=== PATIENT | female | born 1930 | race Caucasian/White ===

== ENCOUNTER 2016-10-12 09:38 | Inpatient (IN) | payer OTHER, MEDICARE ==
[~2016-10-12] VITALS: Ht 149.9 cm; Wt 60.8 kg
[2016-10-12] VITALS (20 sets, daily range): BP systolic 119–184; BP diastolic 49–104; PULSE 56–103; RESP 12–43; TEMP 98.8–101.5; O2SAT 93–100
--- NOTE | 2016-10-12 09:38 | NUR ---
BIB sq 64 from [facility] Logan, Placed in room 01. Placed on cardiac cath lab radiology technologist, blood pressure machine and pulse oximeter. To gown for exam. Side rails up.
--- NOTE | 2016-10-12 09:38 | NUR ---
Dr. Casper at bedside for evaluation
[2016-10-12] MEDS ORDERED: NACL 0.9% 1,000 ML IV SCH ×2 (09:40→13:15)
--- NOTE | 2016-10-12 09:40 | NUR ---
Pt sent by Radha for evaluation of ALOC . Pt difficult to arouse. H/O COPD,HTN,and GERD. IV established 20G LFA prior to arrival. Verbal order of NARCAN given by Dr. Casper.
--- NOTE | 2016-10-12 09:50 | NUR ---
Pt has mild response to narcan. Pt opens eyes to verbal stimuli.
[2016-10-12] MEDS ORDERED: methylPREDNISolone SOD SUCC/PF 62.5 MG/ML VIAL IVP ONE (10:00)
[2016-10-12] MEDS ORDERED: NS IV PRN ×2 (10:00→10:12)
[2016-10-12] MEDS ORDERED: ACETAMINOPHEN 650 MG SUPP.RECT RC ONE (10:00)
[2016-10-12] MEDS ORDERED: NALOXONE HCL IV PRN ×2 (10:00→10:12)
[2016-10-12 10:06] LABS: BASOPHILS # (AUTO) 0.1 K/uL (0.0-0.2); BASOPHILS % (AUTO) 0.7 % (0.0-2.0); EOSINOPHILS % (AUTO) 0.3 % (0.0-4.0); HEMATOCRIT 42.7 % (36-48); HEMOGLOBIN 13.4 g/dL (12.0-16.0); LYMPHOCYTES # (AUTO) 1.2 K/uL (1.0-5.5); LYMPHOCYTES % (AUTO) 13.1 % (20.5-51.5); MEAN CORPUSCULAR HEMOGLOBIN 28 pg (27-31); MEAN CORPUSCULAR HGB CONC 31 % (32-36); MEAN CORPUSCULAR VOLUME 88 fL (79.0-98.0); MONOCYTES # (AUTO) 0.3 K/uL (0.0-1.0); MONOCYTES % (AUTO) 3.3 % (1.7-9.3); NEUTROPHILS # (AUTO) 7.8 K/uL (1.8-7.7); NEUTROPHILS % (AUTO) 82.6 % (40.0-70.0); PLATELET COUNT (AUTO) 291 K/uL (130-430); RED BLOOD CELL COUNT(AUTO) 4.86 MIL/uL (4.2-6.2); RED CELL DISTRIBUTION WIDTH 14.7 % (9.0-15.0); WHITE BLOOD COUNT (AUTO) 9.4 K/uL (4.8-10.8)
[2016-10-12 10:11] LABS: ANION GAP 3 (5-15); CALCIUM 9.3 mg/dL (8.4-11.0); CHLORIDE 101 mmol/L (98-107); CREATININE 1.79 mg/dL (0.55-1.30); GLUCOSE 147 mg/dL (70-99); POTASSIUM 5.3 mmol/L (3.5-5.1); SODIUM SERUM 136 mmol/L (136-145); UREA NITROGEN, BLOOD 29 mg/dL (8-21)
[2016-10-12 10:13] LABS: INR 1.1 (0.8-1.2); PROTHROMBIN TIME 12.2 SECS (9.5-12.5)
[2016-10-12 10:15] LABS: ALANINE AMINOTRANSFERASE 34 U/L (12-78); ALBUMIN 3.8 g/dL (3.4-4.8); ASPARTATE AMINOTRANSFERASE 44 U/L (10-37); TOTAL BILIRUBIN 0.3 mg/dL (0.0-1.0); TOTAL PROTEIN, SERUM 6.8 g/dL (6.4-8.3)
[2016-10-12] MEDS ORDERED: NACL 0.9% 1,000 ML IV ONE (10:15)
[2016-10-12] MEDS ORDERED: ETOMIDATE 20 MG/ 10 ML VIAL (AMIDATE) IVP ONE (10:15)
[2016-10-12] MEDS ORDERED: ROCURONIUM BROMIDE 10 MG/ML (ZEMURON) IV ONE (10:15)
--- NOTE | 2016-10-12 10:20 | NUR ---
ET Tube: 7.5 cm Depth: 22 cm at the lip Vent settings: Rate 24 Tidal volume 500 PEEP 5 FiO2 100% Pt tolerated well.
[2016-10-12] MEDS ORDERED: AMIT100T2 PO (10:26)
[2016-10-12] MEDS ORDERED: GABA-531 PO (10:26)
[2016-10-12] MEDS ORDERED: CHOL500013 PO (10:26)
[2016-10-12] MEDS ORDERED: ACET-2165 PO (10:26)
[2016-10-12] MEDS ORDERED: HYDR-3111 PO (10:26)
[2016-10-12] MEDS ORDERED: LEVO88TA5 PO (10:26)
[2016-10-12] MEDS ORDERED: NOR10 PO (10:26)
[2016-10-12] MEDS ORDERED: OMEP20CA10 PO (10:26)
[2016-10-12] MEDS ORDERED: MAGN400O4 PO (10:26)
[2016-10-12] MEDS ORDERED: ONDA4TAB5 PO (10:26)
[2016-10-12] MEDS ORDERED: SERT-131 PO (10:26)
[2016-10-12] MEDS ORDERED: METO25TA6 PO (10:26)
[2016-10-12] MEDS ORDERED: DULR10 RC (10:26)
[2016-10-12] MEDS ORDERED: IPRA4AER INH (10:26)
[2016-10-12] MEDS ORDERED: LOPE1LIQ PO (10:26)
--- NOTE | 2016-10-12 10:26 | NUR ---
Medication reconciliation completed with information provided by Jose Luis Logan. Any prior medication reconciliation on file was reviewed and corrected.
[2016-10-12] MEDS ORDERED: NALOXONE HCL 0.4 MG/ML AMP (NARCAN) IVP ONE (10:30)
[2016-10-12] MEDS ORDERED: PIPERACILLIN/TAZO 3.375 GM in NS 50 ML IV ONE (10:30)
[2016-10-12] MEDS ORDERED: IPRATROPIUM/ALBUTEROL SULFATE 3 ML AMPUL.NEB INH SCH (10:45)
[2016-10-12] MEDS ORDERED: PROPOFOL DRIP 100 ML IV ONE (10:45)
[2016-10-12] MEDS ORDERED: PIPERACILLIN/TAZOBACTAM 3.375 GM/VIAL (ZOSYN) IV ONE (11:08)
[2016-10-12 11:19] LABS: BLOOD GAS PH 7.269 (7.350-7.450)
[2016-10-12 11:20] LABS: ABG TOTAL HEMOGLOBIN 13.8 G/dL (12.0-18.0); BLOOD GAS BASE EXCESS 5.1 mmol/L (-3.0-3.0); BLOOD GAS COHb% 1.1 % (0.5-1.5); BLOOD GAS HHB 7.4 % (0.0-6.0); BLOOD O2Hb% 91.1 % (94.0-97.0)
--- NOTE | 2016-10-12 11:20 | NUR ---
PULLED ETT 2CM DOWN PER ORDER FROM 23CMM TO 21CM LL. CORKY KAISER HEARD. SAT 100% PT GETTING VOLUMES. Addendum: 10/12/16 at 1636 by Hazel Mendiola RT Amended: Links added.
[2016-10-12 11:22] LABS: ABG TOTAL HEMOGLOBIN 13.3 G/dL (12.0-18.0); BLOOD GAS BASE EXCESS 0.8 mmol/L (-3.0-3.0); BLOOD GAS COHb% 0.7 % (0.5-1.5); BLOOD GAS PH 7.545 (7.350-7.450); BLOOD O2Hb% 97.9 % (94.0-97.0)
--- NOTE | 2016-10-12 11:30 | NUR ---
PER FAMILY AT BEDSIDE, PT IS DNR. MONISHA CALLED TO FAX AND FAMILY TO FAX DNR.
--- NOTE | 2016-10-12 11:35 | NUR ---
Per family request after discussion w/Dr. Casper.Pt to extubated after pt regains consciousness.
--- NOTE | 2016-10-12 11:50 | NUR ---
RN NOTES: ADMISSION FROM ER ADMITTED FROM ER FOR ALTERED MENTAL STATUS/ ASP. PNA, PATIENT CAME IN VIA GURNEY, ORALLY INTUBATED TO VENT. ADMISSION CARE DONE, ET TUBE TO VENT ON AC-12, VT-500, FIO2- 50%, PEEP - 5 SCOPE SHOWS SINUS RHYTHM, INITIAL VITAL SIGNS CHECKED AND RECORDED. SPECIMEN FOR SPUTUM C&S AND MRSA SCREEN OBTAINED AND SENT TO LAB. NORMAL SALINE BOLUS INFUSING ON THE LEFT FOREARM IV LOCK.
--- NOTE | 2016-10-12 12:05 | NUR ---
FAMILY VISIT: DAUGHTER AT BEDSIDE
--- NOTE | 2016-10-12 12:14 | NUR ---
PULMONARY CONSULT: DR ACOSTA Consult was called, sw: Reva re: resp pneumonia, intubated
--- NOTE | 2016-10-12 12:15 | NUR ---
MD VISIT: DR. CONKLIN PATIENT SEEN AND EXAMINED BY DR. CONKLIN, SPOKE TO FAMILY RE: PLAN OF CARE
--- NOTE | 2016-10-12 12:30 | NUR ---
RN NOTES: CODE STATUS UPDATE FAMILY CAME IN WITH PATIENT'S POLST (DNR), DR. CONKLIN SPOKE TO FAMILY ABOUT CODE STATUS. PER FAMILY'S REQUEST, PT WILL BE EXTUBATED WHEN SHE'S MORE AWAKE AND RESPONSIVE.
[2016-10-12] MEDS ORDERED: MILK OF MAGNESIA 30 ML UDC PO PRN (13:00)
[2016-10-12] MEDS ORDERED: ONDANSETRON 4 MG ODT TAB PO PRN (13:00)
[2016-10-12] MEDS ORDERED: SODIUM POLYSTYRENE SULFONATE 15 GM/60 ML UDBTL PO ONE (13:00)
[2016-10-12] MEDS ORDERED: BISACODYL 10 MG/SUPPOSITORY RC PRN (13:00)
--- NOTE | 2016-10-12 13:25 | NUR ---
DR. ACOSTA HERE FOR CONSULT.
[2016-10-12] MEDS ORDERED: ROCURONIUM BROMIDE 10 MG/ML (ZEMURON) ONE (14:00)
[2016-10-12] MEDS ORDERED: ETOMIDATE 20 MG/ 10 ML VIAL (AMIDATE) ONE (14:00)
--- NOTE | 2016-10-12 14:35 | NUR ---
TO RADIOLOGY FOR CT OF THE HEAD.
--- NOTE | 2016-10-12 14:40 | NUR ---
PAGED DR RUBIN CORONA
--- NOTE | 2016-10-12 14:58 | NUR ---
2ND PAGE FOR DR CONKLIN
[2016-10-12] MEDS ORDERED: IPRATROPIUM BROM 0.5 MG/2.5 ML VIAL.NEB (ATROVENT) INH SCH (15:00)
[2016-10-12] MEDS ORDERED: hydrALAZINE HCL 20 MG/ML VIAL IVP PRN (15:15)
[2016-10-12] MEDS: IPRATROPIUM/ALBUTEROL SULFATE 3 ML AMPUL.NEB INH SCH ×3 (15:28→23:11)
--- NOTE | 2016-10-12 16:15 | NUR ---
RN NOTES SPOKE TO DR. CONKLIN, MADE AWARE OF PT CRITICAL TROPONIN LEVEL, WITH ORDERS.
[2016-10-12] MEDS: PIPERACILLIN/TAZO 3.375/DEX-IS 50 ML IV SCH ×2 (16:51→22:01)
--- NOTE | 2016-10-12 17:45 | NUR ---
ECHOCARDIOGRAM DONE. EF - 73%
--- NOTE | 2016-10-12 18:00 | NUR ---
RN NOTES TEMP - 101. COOLING MEASURES DONE.
--- NOTE | 2016-10-12 18:10 | NUR ---
RN NOTES NO URINE FROM METCALF CATH. PATIENT BED WETTING. METCALF CATHETER REINSERTED. URINE SPECIMEN OBTAINED AND SENT TO LAB. PM CARE DONE, CHG BATH AND PERICARE DONE, PATIENT MADE COMFORTABLE.
--- NOTE | 2016-10-12 18:20 | NUR ---
RN NOTES PATIENT IS MORE AWAKE AND RESPONSIVE, ATTEMPTING TO PULL THE ET TUBE. PATIENT IS DNR, DAUGHTER AT BEDSIDE, PATIENT EXTUBATED PER FAMILY AND PT REQUEST. PT PLACED ON O2 @ 2L/MIN VIA NC. HEAD OF BED UP FOR COMFORT.
--- NOTE | 2016-10-12 18:25 | NUR ---
RN NOTES: EXTUBATED, O2 AT 2L/MIN VIA NC
[2016-10-12 18:41] LABS: BILIRUBIN,URINE NEGATIVE (NEGATIVE); BLOOD, URINE 1+ (NEGATIVE); CLARITY/URINE HAZY (CLEAR); COLOR,URINE YELLOW (YELLOW); GLUCOSE,URINE NEGATIVE (NEGATIVE); KETONES,URINE NEGATIVE (NEGATIVE); LEUKOCYTE ESTERASE ,URINE 3+ (NEGATIVE); NITRITE, URINE NEGATIVE (NEGATIVE); PH,URINE 6.5 (5.0-8.0); PROTEIN URINE NEGATIVE (NEGATIVE); UROBILINOGEN,URINE 0.2 (0.2-1.0)
--- NOTE | 2016-10-12 18:45 | NUR ---
RN NOTES COOLING MEASURES CONTINOUSLY DONE, PATIENT MADE COMFORTABLE.
[2016-10-12 18:52] LABS: BACTERIA,URINE MODERATE /HPF (None Seen); WBC,URINE >100 /HPF (0-3)
[2016-10-12] MEDS: ACETAMINOPHEN 325 MG TABLET PO PRN (19:28)
--- NOTE | 2016-10-12 19:45 | NUR ---
PM ASSESSMENT PT IN BED TALKING TO HER DAUGHTER, ALERT, CALM AND COOPERATIVE. PT ON O2 2L NC. O2 SAT 97%. SINUS TACHYCARDIA ON CONTRACTOR BUYER. PERIPHERAL IV 20G TO LEFT FOREARM DRESSING CLEAN DRY INTACT. NO SIGNS OF INFECTION OR INFILTRATION. NACL INFUSING @ 50 CC/HR. METCALF CATHETER IN PLACE DRAINING YELLOW URINE. PT'S DAUGHTER AT BEDSIDE. CALL LIGHT WITHIN REACH. BED AT LOWEST POSITION. CONTINUE TO MONITOR.
--- NOTE | 2016-10-12 19:50 | NUR ---
PAIN MEDICATION PT C/O CHRONIC PAIN 02/20. CALLED DR CONKLIN TO UPDATE MD ABOUT PT'S STATUS. NEW ORDERS RECEIVED.
[2016-10-12] MEDS: NACL 0.9% 1,000 ML IV SCH (20:00)
--- NOTE | 2016-10-12 20:05 | NUR ---
CARDIAC CONSULT CALLED DR MILLER FOR CONSULT TWICE. DR SKAGGS RAW SAMPLER FOR DR MILLER. NO CALL BACK RECEIVED.
[2016-10-12] MEDS: GABAPENTIN 300 MG CAPSULE PO SCH (20:27)
[2016-10-12] MEDS: AMITRIPTYLINE HCL 25 MG TABLET (ELAVIL) PO SCH (20:27)
[2016-10-12] MEDS: METOPROLOL TARTRATE 25 MG TABLET PO SCH (20:27)
[2016-10-12] MEDS: MORPHINE 2 MG/ML INJ. SYRINGE IVP PRN (20:29)
[2016-10-13] VITALS (22 sets, daily range): BP systolic 12–180; BP diastolic 50–100; PULSE 69–88; RESP 12–24; TEMP 98.4–98.8; O2SAT 93–98
[2016-10-13] MEDS: IPRATROPIUM/ALBUTEROL SULFATE 3 ML AMPUL.NEB INH SCH ×6 (03:55→23:14)
[2016-10-13] MEDS: NACL 0.9% 1,000 ML IV SCH (05:44)
[2016-10-13] MEDS: MORPHINE 2 MG/ML INJ. SYRINGE IVP PRN (05:44)
[2016-10-13] MEDS: PIPERACILLIN/TAZO 3.375/DEX-IS 50 ML IV SCH ×2 (05:44→13:28)
[2016-10-13] MEDS: LEVOTHYROXINE SODIUM 0.088 MG TABLET PO SCH (06:49)
[2016-10-13 06:52] LABS: BASOPHILS % (AUTO) 0.4 % (0.0-2.0); EOSINOPHILS # (AUTO) 0.2 K/uL (0.0-0.4); EOSINOPHILS % (AUTO) 2.1 % (0.0-4.0); HEMATOCRIT 36.7 % (36-48); HEMOGLOBIN 12.1 g/dL (12.0-16.0); LYMPHOCYTES # (AUTO) 1.3 K/uL (1.0-5.5); LYMPHOCYTES % (AUTO) 18.5 % (20.5-51.5); MEAN CORPUSCULAR HEMOGLOBIN 29 pg (27-31); MEAN CORPUSCULAR HGB CONC 33 % (32-36); MEAN CORPUSCULAR VOLUME 88 fL (79.0-98.0); MONOCYTES # (AUTO) 0.4 K/uL (0.0-1.0); MONOCYTES % (AUTO) 5.9 % (1.7-9.3); NEUTROPHILS # (AUTO) 5.4 K/uL (1.8-7.7); NEUTROPHILS % (AUTO) 73.1 % (40.0-70.0); PLATELET COUNT (AUTO) 188 K/uL (130-430); RED BLOOD CELL COUNT(AUTO) 4.17 MIL/uL (4.2-6.2); RED CELL DISTRIBUTION WIDTH 14.5 % (9.0-15.0); WHITE BLOOD COUNT (AUTO) 7.3 K/uL (4.8-10.8)
[2016-10-13 06:56] LABS: CALCIUM 8.2 mg/dL (8.4-11.0); CHLORIDE 107 mmol/L (98-107); CREATININE 0.94 mg/dL (0.55-1.30); GLUCOSE 100 mg/dL (70-99); POTASSIUM 3.4 mmol/L (3.5-5.1); SODIUM SERUM 140 mmol/L (136-145); UREA NITROGEN, BLOOD 16 mg/dL (8-21)
[2016-10-13 07:07] LABS: ANION GAP < 3 (5-15)
--- NOTE | 2016-10-13 08:00 | NUR ---
AWAKE AND ALERT, NOT IN ACUTE DISTRESS, DENIES ANY PAIN/DISCOMFORT. SCOPE SHOWS SINUS RHYTHM. BP STABLE. PATIENT ASSISTED WITH BREAKFAST, ATE FAIRLY.
[2016-10-13] MEDS: SERTRALINE HCL 50 MG TABLET PO SCH (09:00)
[2016-10-13] MEDS: OMEPRAZOLE 20 MG CAPSULE.DR (PriLOSEC) PO SCH (09:27)
[2016-10-13] MEDS: amLODIPine BESYLATE 10 MG TABLET PO SCH (09:27)
[2016-10-13] MEDS: METOPROLOL TARTRATE 25 MG TABLET PO SCH ×2 (09:30→20:44)
--- NOTE | 2016-10-13 10:00 | NUR ---
FAMILY HERE TO VISIT, UPDATED ON PT PRESENT CONDITION.
--- NOTE | 2016-10-13 11:30 | NUR ---
DR. MILLER HERE FOR CONSULT.
[2016-10-13] MEDS ORDERED: ASPIRIN 81 MG TAB.CHEW PO ONE (12:15)
--- NOTE | 2016-10-13 13:00 | NUR ---
DR. CONKLIN HERE TO SEE PATIENT.
--- NOTE | 2016-10-13 13:30 | NUR ---
DR. ACOSTA HERE TO SEE PATIENT, WITH ORDERS.
[2016-10-13] MEDS: ACETAMINOPHEN 325 MG TABLET PO PRN ×2 (14:58→18:43)
--- NOTE | 2016-10-13 15:15 | NUR ---
DOZING ON AND OFF.
--- NOTE | 2016-10-13 16:00 | NUR ---
CONFUSED AND DISORIENTED AT THIS TIME. PATIENT REORIENTED, STILL WANTS TO GO HOME. REQUESTED TO CALL HER DAUGHTER SO SHE CAN GO HOME. DAUGHTER CALLED, WILL COME IN AND SEE PATIENT.
--- NOTE | 2016-10-13 17:00 | NUR ---
DAUGHTER AT BEDSIDE, PATIENT IS CALM AT THIS TIME. DAUGHTER INFORMED ABOUT ORDER TO TRANSFER PATIENT TO TELEMETRY.
--- NOTE | 2016-10-13 17:40 | NUR ---
TRANSFERRED TO TELEMETRY RM 132-C IN STABLE CONDITION. ENDORSED TO PATRICIA CHAIREZ
--- NOTE | 2016-10-13 17:45 | NUR ---
ADMISSION NOTE Received patient from ICU via gurney, received report from RN. Patient admitted with diagnosis of Altered Mental Status/Pneumonia Aspiration. Patient oriented to hospital routine, call light, toileting and safety-patient verbalized understanding.
--- NOTE | 2016-10-13 18:59 | NUR ---
closing notes: pt on bed resting. no distress noted. daughter at bedside. needs attended. call light within reach. report will be given to incoming nurse.
--- NOTE | 2016-10-13 19:15 | NUR ---
change of shift.initial pt.assessment.dtr@bedside.pt.presents mild degree aloc.aaa/q x1 2 person;soley. iv access;lock.rt,forearm.o2 applied:2l/min via nasal cannulae.herbert catheter.call light w/in pt's reach. pt.a transfer from the unit:icu:10/13/16.
--- NOTE | 2016-10-13 20:00 | NUR ---
pt.assessed.v/s assessed.values w/in normal limits:ex:b/p elevated.2 f/u.o2sat%=96%@2l/min via nc. pt.repsoiitoned.i have supplied h2o;pitcher,kleenx,trash bags,cups.call light w/in pt's reach. Addendum: 10/14/16 at 0815 by Abel Cummings RN pt.requested bedpan.i have attended to the pt's request;unassisted.i have cleaned the pt;unassisted. pt.presents bowel movement.
[2016-10-13] MEDS: AMITRIPTYLINE HCL 25 MG TABLET (ELAVIL) PO SCH (20:43)
[2016-10-13] MEDS: GABAPENTIN 300 MG CAPSULE PO SCH (20:45)
--- NOTE | 2016-10-13 21:00 | NUR ---
2100p medications administered.medications objective explanation conveyed 2 the pt.pt.able 2 swallow efficently: whole pills.call light w/in pt's reach.
--- NOTE | 2016-10-13 22:00 | NUR ---
pt.assessed.pt.presence quiescent affect;calm,asleep.pt.repositioned.sheet applied upon pt. call light w/in pt's reach.
--- NOTE | 2016-10-14 | NUR ---
PT.PRESENTS RESTLESS/AGITATED STATUS.attempts 2 calm pt.2 no avail:unsuccssful.2 f/u w/ .pt.repositioned.environment/stimuli lessened.pt.re oriented.
--- NOTE | 2016-10-14 00:20 | NUR ---
paged paged for Leeanna Brown; s/w Taylor, dialed .
[2016-10-14] MEDS ORDERED: LORazepam 1 MG TABLET PO ONE (00:30)
--- NOTE | 2016-10-14 00:30 | NUR ---
returned telephone call.apprised of pt'c status. ordered ativan:1mg po x1.
--- NOTE | 2016-10-14 00:45 | NUR ---
pt.assessed.i have held the ativan.pt.presents quiescent affect;calm.pt.repositoned.blanket/sheet applied. call light placed w/in pt's reach.
--- NOTE | 2016-10-14 01:00 | NUR ---
pt.assessed.pt.presents quiescent affect;calm,asleep.o2 placed via nasal cannulae.hold the ativan.
--- NOTE | 2016-10-14 02:00 | NUR ---
pt.repositioned.pt.presents quiescent affect;calm,asleep.call light w/in pt's reach.
[2016-10-14] MEDS: IPRATROPIUM/ALBUTEROL SULFATE 3 ML AMPUL.NEB INH SCH ×5 (03:00→23:29)
--- NOTE | 2016-10-14 04:00 | NUR ---
pt.assessed.pt.repositioned.v/s assessed.values w/in normal limits.no distress/discomfort manifested. call light w/in pt's reach.
[2016-10-14 04:15] VITALS: BP 156/73; PULSE 74; RESP 20; TEMP 98.2; O2SAT 90
--- NOTE | 2016-10-14 06:00 | NUR ---
pt.assessed.pt.presents quiescent affect;calm,asleep.no distress/discomfort manifested. call light w/in pt's reach.
--- NOTE | 2016-10-14 06:45 | NUR ---
0700a medication administered.pt.able 2 swallow efficently.pt.repositioned.top sheet placed upon pt. call light w/in pt's reach.
[2016-10-14] MEDS: LEVOTHYROXINE SODIUM 0.088 MG TABLET PO SCH (06:59)
[2016-10-14 07:18] LABS: BASOPHILS % (AUTO) 0.2 % (0.0-2.0); EOSINOPHILS # (AUTO) 0.3 K/uL (0.0-0.4); EOSINOPHILS % (AUTO) 2.9 % (0.0-4.0); HEMATOCRIT 40.2 % (36-48); LYMPHOCYTES # (AUTO) 1.2 K/uL (1.0-5.5); LYMPHOCYTES % (AUTO) 13.5 % (20.5-51.5); MEAN CORPUSCULAR HEMOGLOBIN 29 pg (27-31); MEAN CORPUSCULAR HGB CONC 33 % (32-36); MEAN CORPUSCULAR VOLUME 88 fL (79.0-98.0); MONOCYTES # (AUTO) 0.5 K/uL (0.0-1.0); MONOCYTES % (AUTO) 5.5 % (1.7-9.3); NEUTROPHILS # (AUTO) 6.7 K/uL (1.8-7.7); NEUTROPHILS % (AUTO) 77.9 % (40.0-70.0); PLATELET COUNT (AUTO) 183 K/uL (130-430); RED BLOOD CELL COUNT(AUTO) 4.57 MIL/uL (4.2-6.2); RED CELL DISTRIBUTION WIDTH 14.1 % (9.0-15.0); WHITE BLOOD COUNT (AUTO) 8.7 K/uL (4.8-10.8)
--- NOTE | 2016-10-14 07:20 | NUR ---
intial notes: pt on bed resting. awake and alert. stable. i.v. access patent. discussed plan of care. call light within reach. report received at bedside.
[2016-10-14 08:00] VITALS: BP 178/86; PULSE 87; RESP 14; TEMP 98.2; O2SAT 96
[2016-10-14 08:09] LABS: ANION GAP 8 (5-15); CALCIUM 8.3 mg/dL (8.4-11.0); CHLORIDE 105 mmol/L (98-107); CREATININE 0.59 mg/dL (0.55-1.30); GLUCOSE 100 mg/dL (70-99); SODIUM SERUM 147 mmol/L (136-145); UREA NITROGEN, BLOOD 6 mg/dL (8-21)
[2016-10-14] MEDS: SERTRALINE HCL 50 MG TABLET PO SCH (08:10)
[2016-10-14] MEDS: METOPROLOL TARTRATE 25 MG TABLET PO SCH ×2 (08:10→20:29)
[2016-10-14] MEDS: amLODIPine BESYLATE 10 MG TABLET PO SCH (08:11)
[2016-10-14] MEDS: ASPIRIN 81 MG TAB.CHEW PO SCH (08:11)
[2016-10-14] MEDS: OMEPRAZOLE 20 MG CAPSULE.DR (PriLOSEC) PO SCH (08:11)
--- NOTE | 2016-10-14 08:19 | NUR ---
rounds: pt confused asking for her clothes. re-orient. no distress noted.
[2016-10-14] MEDS: ACETAMINOPHEN 325 MG TABLET PO PRN ×2 (08:23→21:49)
[2016-10-14 08:32] LABS: POTASSIUM 2.7 mmol/L (3.5-5.1)
[2016-10-14 08:41] LABS: ALANINE AMINOTRANSFERASE 42 U/L (12-78); ALBUMIN 3.2 g/dL (3.4-4.8); ASPARTATE AMINOTRANSFERASE 41 U/L (10-37); TOTAL BILIRUBIN 0.5 mg/dL (0.0-1.0)
[2016-10-14] MEDS ORDERED: POTASSIUM CHLORIDE 40 MEQ, LIDOCAINE JECT 2% PF 100 MG 75 MG in NS 250 ML IV ONE (09:00)
--- NOTE | 2016-10-14 09:17 | NUR ---
Nutrition Update Horacio Scale 12 noted. Pt admitted for acute respiratory failure/aspiration pneumonia. Diet: regular BMI: 23.2 kg/m2 RD to follow per nutrition care standards.
--- NOTE | 2016-10-14 10:00 | NUR ---
P.T.: seen by Romi
[2016-10-14 10:10] LABS: CHOLESTEROL 150 mg/dL (<200); HDL CHOLESTEROL 50 mg/dL (>55); LDL CHOLESTEROL 78 mg/dL (<100); TRIGLYCERIDES 112 mg/dL (30-150)
[2016-10-14] MEDS ORDERED: POTASSIUM CHLORIDE 20 MEQ TAB.PRT.SR PO ONE (10:15)
[2016-10-14] MEDS ORDERED: hydrALAZINE HCL 25 MG TABLET PO ONE (10:15)
[2016-10-14] MEDS: HYDROcodone/ACETAMIN 5-325 MG TAB (NORCO/ VICODIN) PO PRN (10:30)
--- NOTE | 2016-10-14 11:00 | NUR ---
Luis rounds: seen by Dr. Carr , talk to pt and daughter.
--- NOTE | 2016-10-14 11:40 | NUR ---
HORACIO SCALE EVALUATION: Patient evaluated for a low Horacio score of 12. Patient was awake, alert, confused, and received in a Te bed with an IsoFlex ISAIAS mattress, low air-loss therapy was initiated. Patient is unable to turn independently. Skin is fair. Recommend encourage and assist patient as needed with repositioning every 2 hours with pillow support, and off-load pressure areas with pillows for pressure re-distribution. Elevate, off-load and float bilateral heels with pillows. Use moisture barrier cream on buttocks and other moisture susceptible areas QID and as needed for soiling. Perform skin care and monitor skin integrity Q shift. Maintain patient on a low air-loss mattress.
[2016-10-14 12:00] VITALS: BP 124/42; PULSE 70; RESP 18; TEMP 97.4; O2SAT 93
--- NOTE | 2016-10-14 14:00 | NUR ---
rounds: pt sleeping. no distress noted.
[2016-10-14 14:50] VITALS: Ht 149.9 cm; Wt 60.8 kg
[2016-10-14 16:00] VITALS: BP 156/95; PULSE 82; RESP 18; TEMP 97.7; O2SAT 98
--- NOTE | 2016-10-14 16:00 | NUR ---
rounds: pt sleeping.
[2016-10-14] MEDS: PIPERACILLIN/TAZO 4.5GM/DEX-IS 100 ML IV SCH ×2 (16:13→21:44)
--- NOTE | 2016-10-14 18:30 | NUR ---
rounds: daughter at bedside. pt stable.
[2016-10-14 20:00] VITALS: BP 147/60; PULSE 89; RESP 18; TEMP 98.5; O2SAT 94
--- NOTE | 2016-10-14 20:00 | NUR ---
PM Shift Assessment Received patient lying in bed, AAO x2, no acute distress noted. Patient was reoriented x4, but remains confused. IV noted to right forearm, noted to be infiltrated, IV discontinued. New IV to be inserted. Chase catheter noted, secured in place, draining well to gravity. Incentive spirometer noted at the bedside, patient able to demonstrate correct use up to 500mL of inspired air. Education provided on the importance of use 10x/hour while awake. SCD's noted to BLE. Plan of care discussed with patient and updated on board. Call light is within reach, all fall and safety precautions in place, will continue to monitor closely.
[2016-10-14] MEDS: GABAPENTIN 300 MG CAPSULE PO SCH (20:28)
[2016-10-14] MEDS: AMITRIPTYLINE HCL 25 MG TABLET (ELAVIL) PO SCH (20:28)
[2016-10-14] MEDS: POTASSIUM CHLORIDE 20 MEQ TAB.PRT.SR PO SCH (20:28)
--- NOTE | 2016-10-14 20:49 | NUR ---
closing notes: pt on bed awake. needs attended. call light within reach. report given at bedside.
[2016-10-14] MEDS: hydrALAZINE HCL 25 MG TABLET PO SCH (21:45)
--- NOTE | 2016-10-14 22:22 | NUR ---
RN Rounds Patient is resting quietly in bed, no acute distress noted. IV noted to be infiltrated, new IV started earlier to left hand, #22 gauge, good blood return noted, flushes well. IV antibiotics started and infusing well. Call light is within reach, all fall and safety precautions in place, will continue to monitor.
[2016-10-15] VITALS (7 sets, daily range): BP systolic 143–163; BP diastolic 60–78; PULSE 72–97; RESP 16–20; TEMP 97–98.3; O2SAT 91–100
--- NOTE | 2016-10-15 00:20 | NUR ---
RN Rounds Patient is sleeping but easily arousable, no acute distress noted. Patient made comfortable in bed with pillow support. Call light is within reach, all fall and safety precautions in place, will continue to monitor.
--- NOTE | 2016-10-15 02:34 | NUR ---
RN Rounds Patient is resting quietly in bed, no acute distress noted. Call light is within reach, all fall and safety precautions in place, will continue to monitor.
[2016-10-15] MEDS: IPRATROPIUM/ALBUTEROL SULFATE 3 ML AMPUL.NEB INH SCH ×6 (03:00→23:36)
--- NOTE | 2016-10-15 04:27 | NUR ---
RN Rounds Patient is resting quietly in bed, no acute distress noted, appears confused, reoriented x4 and she verbalized understanding. Patient was cleaned and repositioned with pillow support, made comfortable in bed. Call light is within reach, all fall and safety precautions in place, will continue to monitor.
[2016-10-15] MEDS: PIPERACILLIN/TAZO 4.5GM/DEX-IS 100 ML IV SCH (06:10)
[2016-10-15] MEDS: LEVOTHYROXINE SODIUM 0.088 MG TABLET PO SCH (06:10)
--- NOTE | 2016-10-15 06:32 | NUR ---
Closing Notes Patient is resting quietly in bed, noted with confusion, reoriented x4 and made comfortable in bed. IV antibiotics infusing well, no complain of pain at this time. Call light is within reach, all fall and safety precautions in place, will continue to monitor until SBAR report is endorsed to AM nurse at bedside. Addendum: 10/15/16 at 0638 by Cande Fitzpatrick RN Patient is stable, all needs met throughout shift.
[2016-10-15 06:42] LABS: ALANINE AMINOTRANSFERASE 48 U/L (12-78); ANION GAP 2 (5-15); ASPARTATE AMINOTRANSFERASE 36 U/L (10-37); CALCIUM 8.4 mg/dL (8.4-11.0); CHLORIDE 104 mmol/L (98-107); CREATININE 0.65 mg/dL (0.55-1.30); GLUCOSE 103 mg/dL (70-99); POTASSIUM 3.4 mmol/L (3.5-5.1); SODIUM SERUM 142 mmol/L (136-145); TOTAL BILIRUBIN 0.5 mg/dL (0.0-1.0); TOTAL PROTEIN, SERUM 5.9 g/dL (6.4-8.3); UREA NITROGEN, BLOOD 5 mg/dL (8-21)
[2016-10-15 07:02] LABS: BASOPHILS % (AUTO) 0.2 % (0.0-2.0); EOSINOPHILS # (AUTO) 0.4 K/uL (0.0-0.4); HEMATOCRIT 39.1 % (36-48); HEMOGLOBIN 12.8 g/dL (12.0-16.0); LYMPHOCYTES # (AUTO) 1.1 K/uL (1.0-5.5); MEAN CORPUSCULAR HEMOGLOBIN 29 pg (27-31); MEAN CORPUSCULAR HGB CONC 33 % (32-36); MEAN CORPUSCULAR VOLUME 88 fL (79.0-98.0); MONOCYTES # (AUTO) 0.6 K/uL (0.0-1.0); MONOCYTES % (AUTO) 7.1 % (1.7-9.3); NEUTROPHILS # (AUTO) 6.7 K/uL (1.8-7.7); NEUTROPHILS % (AUTO) 75.7 % (40.0-70.0); PLATELET COUNT (AUTO) 195 K/uL (130-430); RED BLOOD CELL COUNT(AUTO) 4.43 MIL/uL (4.2-6.2); RED CELL DISTRIBUTION WIDTH 14.2 % (9.0-15.0); WHITE BLOOD COUNT (AUTO) 8.8 K/uL (4.8-10.8)
--- NOTE | 2016-10-15 08:00 | NUR ---
Opening Note: Received report from night nurse. Patient is resting comfortably in bed. No s/s of distress or sob. Patient is awake with some confusion. Vital signs wnl, assessment complete. Call light in reach, bed in lowest position, and will continue to monitor.
[2016-10-15] MEDS: SERTRALINE HCL 50 MG TABLET PO SCH (08:44)
[2016-10-15] MEDS: ASPIRIN 81 MG TAB.CHEW PO SCH (08:44)
[2016-10-15] MEDS: POTASSIUM CHLORIDE 20 MEQ TAB.PRT.SR PO SCH ×2 (08:44→20:57)
[2016-10-15] MEDS: OMEPRAZOLE 20 MG CAPSULE.DR (PriLOSEC) PO SCH (08:44)
[2016-10-15] MEDS: hydrALAZINE HCL 25 MG TABLET PO SCH ×2 (08:45→20:58)
[2016-10-15] MEDS: amLODIPine BESYLATE 10 MG TABLET PO SCH (08:45)
[2016-10-15] MEDS: METOPROLOL TARTRATE 25 MG TABLET PO SCH ×2 (08:46→20:57)
--- NOTE | 2016-10-15 10:00 | NUR ---
NOTE: PATIENT IS RESTING COMFORTABLY IN BED. NO S/S OF DISTRESS OR SOB. PATIENT IS ALERT BUT CONFUSED. CALL LIGHT IN REACH, BED IN LOWEST POSITION, AND WILL CONTINUE TO MONITOR.
--- NOTE | 2016-10-15 12:00 | NUR ---
NOTE: PATIENT IS RESTING COMFORTABLY IN BED. NO S/S OF DISTRESS OR SOB. PATIENT IS ALERT BUT CONFUSED. DAUGHTER AT BEDSIDE. CALL LIGHT IN REACH, BED IN LOWEST POSITION, AND WILL CONTINUE TO MONITOR.
--- NOTE | 2016-10-15 14:47 | NUR ---
PHYSICAL THERAPY CO-SIGN The Physical Therapy Progress Notes documented by Convict Guard have been reviewed. CONT PT PER PLAN OF CARE; FOCUS ON TRANSFER TRAINING Reviewed/Co-Signed by: Christine Rivera PT Documentation Done by: YO MENDES STAMPING PRESS OPERATOR Addendum: 10/15/16 at 1448 by Christine Rivera PT Amended: Links added.
[2016-10-15] MEDS: cefTRIAXone 1 GM in D5W 50 ML IV SCH (14:51)
--- NOTE | 2016-10-15 15:48 | NUR ---
DC PLANNING Spoke w pt @ bedside, states lives @ [facility] side. States Dr Carr discussed dc planning w her & her dtr & plan for snf possibly tomorrow. Agreeable w plan for SNF, prefers [facility].
--- NOTE | 2016-10-15 16:00 | NUR ---
Note: Patient is resting comfortably in bed. No s/s of distress or sob. Patient is alert and oriented. Call light in reach, bed in lowest position, and will continue to monitor.
[2016-10-15] MEDS: HYDROcodone/ACETAMIN 5-325 MG TAB (NORCO/ VICODIN) PO PRN ×2 (17:06→21:06)
--- NOTE | 2016-10-15 18:11 | NUR ---
CLOSING NOTE: PATIENT IS RESTING COMFORTABLY IN BED. NO S/S OF DISTRESS OR SOB. PATIENT IS ALERT AND ORIENTED. IV IS PATENT. METCALF DRAINING TO GRAVITY. CALL LIGHT IN REACH, BED IN LOWEST POSITION, AND WILL GIVE REPORT TO NIGHT NURSE.
--- NOTE | 2016-10-15 19:21 | NUR ---
OPENING NOTES RECEIVED REPORT FROM DAY SHIFT NURSE. PATIENT SHOWS NO SIGNS OR SYMPTOMS OF ACUTE DISTRESS. NASAL CANNULA AT 2L, PATIENT IS ALERT AND ORIENTED. BED IN LOWEST POSITION, BED ALARM ON, CALL LIGHT WITHIN REACH. DAUGHTER AT BEDSIDE.
[2016-10-15] MEDS: GABAPENTIN 300 MG CAPSULE PO SCH (20:57)
[2016-10-15] MEDS: AMITRIPTYLINE HCL 25 MG TABLET (ELAVIL) PO SCH (20:58)
--- NOTE | 2016-10-15 21:04 | NUR ---
ROUNDS PATIENT COMPLAINS OF PAIN 12/21. PROVIDED PAIN MEDICATION ORDERED. NO ACUTE SIGNS OR SYMPTOMS OF DISTRESS NOTED. FALL PRECAUTIONS IN PLACE, CALL LIGHT WITHIN REACH. WILL CONTINUE TO MONITOR FREQUENTLY. ROOM ACROSS FROM NURSES STATION.
--- NOTE | 2016-10-15 22:45 | NUR ---
ROUNDS PATIENT IN GOOD SPIRITS. AWAKE AND SITTING UP IN BED. ASSISTED PATIENT TO EAT HER BROWNIE AND DRINK WATER. NO SIGNS OR SYMPTOMS OF ACUTE DISTRESS NOTED. BED IN LOWEST POSITION, BED ALARM ON, CALL LIGHT WITHIN REACH. WILL CONTINUE TO MONITOR FREQUENTLY.
[2016-10-16 00:50] VITALS: BP 132/67; PULSE 68; RESP 18; TEMP 98.4; O2SAT 96
--- NOTE | 2016-10-16 01:05 | NUR ---
ROUNDS PATIENT SLEEPING COMFORTABLY IN SEMI-LEVINE'S POSITION. NO S/S OF ACUTE DISTRESS NOTED. PATIENT IS SNORING, VISIBLE RISE AND FALL OF CHEST. NASAL CANNULA IN PLACE WITH 2L RUNNING. BED IN LOWEST POSITION, BED ALARM ON, CALL LIGHT WITHIN REACH. WILL CONTINUE TO MONITOR.
[2016-10-16] MEDS: IPRATROPIUM/ALBUTEROL SULFATE 3 ML AMPUL.NEB INH SCH ×4 (03:00→15:34)
--- NOTE | 2016-10-16 03:00 | NUR ---
ROUNDS PATIENT IS SLEEPING COMFORTABLY. VISIBLE RISE AND FALL OF CHEST NOTED. NO SIGNS OR SYMPTOMS OF DISTRESS NOTED. BED IN LOWEST POSITION, BED ALARM ON, CALL LIGHT WITHIN REACH. WILL CONTINUE TO MONITOR FREQUENTLY.
[2016-10-16 03:51] VITALS: BP 131/58; PULSE 71; RESP 18; TEMP 98.6; O2SAT 97
[2016-10-16 04:00] VITALS: BP 131/58; PULSE 71; RESP 18; TEMP 98.6; O2SAT 97
--- NOTE | 2016-10-16 04:00 | NUR ---
ROUNDS PATIENT SLEEPING COMFORTABLY. VISIBLE RISE AND FALL OF CHEST NOTED. AUDIBLY SNORING IN SEMI-LEVINE'S POSITION. FALL PRECAUTIONS IN PLACE. NO ACUTE S/S OF DISTRESS NOTED. WILL CONTINUE TO MONITOR. CALL LIGHT WITHIN REACH.
[2016-10-16] MEDS: LEVOTHYROXINE SODIUM 0.088 MG TABLET PO SCH (06:26)
--- NOTE | 2016-10-16 06:46 | NUR ---
CLOSING NOTES PATIENT SITTING IN BED SLEEPING COMFORTABLY. VISIBLE RISE AND FALL OF CHEST NOTED, AUDIBLE SNORING. IV PATENT AND RUNNING. NO ACUTE S/S OF DISTRESS NOTED. BED IN LOWEST POSITION, CALL LIGHT WITHIN REACH. ALL NEEDS MET THROUGHOUT THE SHIFT. WILL ENDORSE CARE TO DAY SHIFT NURSE.
--- NOTE | 2016-10-16 07:20 | NUR ---
initial notes: patient awake,alert and confused. i.V. access patent. herbert cath draining well. SCD in placed. call light within reach. report received at bedside.
[2016-10-16] MEDS: OMEPRAZOLE 20 MG CAPSULE.DR (PriLOSEC) PO SCH (08:15)
[2016-10-16] MEDS: ASPIRIN 81 MG TAB.CHEW PO SCH (08:15)
[2016-10-16] MEDS: HYDROcodone/ACETAMIN 5-325 MG TAB (NORCO/ VICODIN) PO PRN ×2 (08:17→18:01)
[2016-10-16] MEDS: POTASSIUM CHLORIDE 20 MEQ TAB.PRT.SR PO SCH ×2 (08:18→21:48)
[2016-10-16] MEDS: amLODIPine BESYLATE 10 MG TABLET PO SCH (08:18)
[2016-10-16] MEDS: hydrALAZINE HCL 25 MG TABLET PO SCH ×2 (08:19→21:48)
[2016-10-16] MEDS: SERTRALINE HCL 50 MG TABLET PO SCH (08:19)
[2016-10-16] MEDS: METOPROLOL TARTRATE 25 MG TABLET PO SCH ×2 (08:19→21:49)
--- NOTE | 2016-10-16 08:25 | NUR ---
rounds: patient assisted with feeding by student nurse. compliant. complained of pain 8/;10. Pain meds given thru P.O.
--- NOTE | 2016-10-16 10:36 | NUR ---
DISCHARGE PLANNING Faxed referral to [facility] [phone]. Will follow up. Addendum: 10/16/16 at 1221 by Meena Cardoso DP Spoke with Zita in admitting at [facility] patient assigned to room 113A PATRICIA to report [phone] bed available anytime. PATRICIA Keller made aware. Faxed updated ISO status to [facility]. Will follow up on ISO bed. RN will follow up on MD discharge order.
[2016-10-16 11:30] VITALS: BP 142/57; PULSE 71; RESP 16; TEMP 97.2; O2SAT 96
--- NOTE | 2016-10-16 12:45 | NUR ---
PHYSICAL THERAPY CO-SIGN The Physical Therapy Progress Notes documented by Materials Recycler have been reviewed. Reviewed/Co-Signed by: Marylu Batista, PT Documentation Done by: Saeid Dolan PTA I concur with the documentation of this INTERNATIONAL SALES MANAGER. Plan: continue PT as per plan of care. Addendum: 10/16/16 at 1403 by Marylu Batista PT Amended: Links added.
[2016-10-16] MEDS: cefTRIAXone 1 GM in D5W 50 ML IV SCH (12:46)
--- NOTE | 2016-10-16 15:00 | NUR ---
PICC line: 2 failed attempts for i.v. insertion. Dr. Carr aware and ordered PICC line before discharging the pt.
--- NOTE | 2016-10-16 15:00 | NUR ---
Chase cath: pt refused the removal of the catheter and daughter also insist not to remove today but can be removed when she leaves the hospital tomorrow.
[2016-10-16 15:43] VITALS: BP 113/52; PULSE 64; RESP 18; TEMP 98.2; O2SAT 93
[2016-10-16 15:59] LABS: INR 1.1 (0.8-1.2)
--- NOTE | 2016-10-16 16:30 | NUR ---
IV RE-INSERTION: Complaining of leakage to IV site. Restarted on . Successful after 2 attempts. L hand gauge 24. Resumed current IVF of Rocephine antibiotic and regulated @ 100 per hour. Will observe for any signs of infiltration.
--- NOTE | 2016-10-16 17:30 | NUR ---
rounds: pt eating dinner by herself. no distress noted.
--- NOTE | 2016-10-16 19:30 | NUR ---
closing notes: pt on bed resting. daughter at bedside. no distress noted. needs attended. call light within reach. report given at bedside.
[2016-10-16 19:40] VITALS: BP 112/64; PULSE 95; RESP 18; TEMP 98.1; O2SAT 96
--- NOTE | 2016-10-16 19:40 | NUR ---
Initial Notes Pt is alert, oriented x3, pleasant and cooperative. POC discussed with pt and daughter Carolin at bedside, both verbalized understanding. Will reinforce teaching as needed. IV intact. VSS. Afebrile. Pt is bedrest, with safety precautions in place, side rails up x3, with bed in lowest, locked position, bed alarm on at all times. IV to left hand #24g noted. Order for PICC line noted. Pt is on contact isolation for MDRO of urine, isolation precaution maintained. Breathing is even and unlabored. Pt is on 2L N/C. Pt educated business system consultant light use, and correct back demonstration noted. All needs met at this time. Call light in hand. Will continue to monitor.
--- NOTE | 2016-10-16 20:07 | NUR ---
Hadley Carr at this time. Will await call back.
--- NOTE | 2016-10-16 20:21 | NUR ---
Spoke with MD Carr Informed MD Carr that PICC line nurse will be here tonight. ordered to hold discharge order for mikayla.
[2016-10-16] MEDS: GABAPENTIN 300 MG CAPSULE PO SCH (21:48)
[2016-10-16] MEDS: AMITRIPTYLINE HCL 25 MG TABLET (ELAVIL) PO SCH (21:49)
--- NOTE | 2016-10-16 21:55 | NUR ---
PICC line RN with patient at this time.
--- NOTE | 2016-10-16 22:30 | NUR ---
PICC line inserted to MARK double lumen. Ok to use per PICC line PATRICIA De La Garza.
[2016-10-17 00:45] VITALS: BP 136/63; PULSE 66; RESP 18; TEMP 97.4; O2SAT 98
--- NOTE | 2016-10-17 01:46 | NUR ---
ASSUMPTION OF CARE Pt. and report received from LVN. Lakeisha Will assume care for patient.
--- NOTE | 2016-10-17 04:05 | NUR ---
ROUNDS Pt. is resting quietly in bed with no s/s of acute distress. Currently receiving breathing tx. Safety and fall precautions in place. Bed alarm on. Room near nurses station. Will continue to monitor.
[2016-10-17 04:30] VITALS: BP 135/72; PULSE 89; RESP 18; TEMP 98.7; O2SAT 97
[2016-10-17] MEDS: LEVOTHYROXINE SODIUM 0.088 MG TABLET PO SCH (06:15)
[2016-10-17] MEDS: HYDROcodone/ACETAMIN 5-325 MG TAB (NORCO/ VICODIN) PO PRN ×2 (06:18→15:33)
--- NOTE | 2016-10-17 06:43 | NUR ---
DUE MEDS/PAIN/METCALF CATHETER/INCENTIVE SPIROMETER Due Synthroid administered as ordered. Administered with [place] 5-325mg 1 tab as ordered PRN for moderate pain. Educated pt. regarding medication and s/e. Pt. verbalized understanding. 200mls of yellow urine emptied from Metcalf catheter. Metcalf catheter removed, pt. tolerated well. Metcalf catheter tip intact. Pt. tolerated well. Encouraged pt. to continue deep breathing exercises with incentive spirometer. Requested for window to be closed. Safety precautions in place. Bed alarm on. room near nurses station. Will continue to monitor.
--- NOTE | 2016-10-17 06:56 | NUR ---
CLOSING NOTES All needs met. Pt. denies any needs at this time. States she wants to "try to rest for a little bit." No s/s of acute distress. Safety and fall precautions in place. Bed alarm on. Right upper PICC line is CDI. Educated pt. she will need to void within 6 hours since her herbert has been removed. Will endorse care to oncoming day shift nurse.
[2016-10-17] MEDS: IPRATROPIUM/ALBUTEROL SULFATE 3 ML AMPUL.NEB INH SCH ×3 (07:00→16:21)
--- NOTE | 2016-10-17 07:30 | NUR ---
rn notes: patient is alert awake x 2-3. afebrile. vss stable. lungs bilaterally diminished at the bases. abdomen soft and non distended. has rt upper arm picc line two lumen dry/intact. has saline lock on the left hand in place #22. call lights within reach. on low air mattress. safety measures maintained. informed the patient to call for assistance. bed in low position.
[2016-10-17 07:47] VITALS: BP 126/64; PULSE 85; RESP 18; TEMP 97.7; O2SAT 95
[2016-10-17] MEDS: OMEPRAZOLE 20 MG CAPSULE.DR (PriLOSEC) PO SCH (08:24)
[2016-10-17] MEDS: ASPIRIN 81 MG TAB.CHEW PO SCH (08:24)
[2016-10-17] MEDS: POTASSIUM CHLORIDE 20 MEQ TAB.PRT.SR PO SCH (08:24)
[2016-10-17] MEDS: METOPROLOL TARTRATE 25 MG TABLET PO SCH (08:25)
[2016-10-17] MEDS: SERTRALINE HCL 50 MG TABLET PO SCH (08:26)
[2016-10-17] MEDS: hydrALAZINE HCL 25 MG TABLET PO SCH (08:26)
[2016-10-17] MEDS: amLODIPine BESYLATE 10 MG TABLET PO SCH (08:27)
--- NOTE | 2016-10-17 09:00 | NUR ---
due medication at this time. made comfortable, assists on adls.
--- NOTE | 2016-10-17 10:30 | NUR ---
bladder scan done 357cc of urine retained in the bladder. Dr Carr is aware.
--- NOTE | 2016-10-17 10:34 | NUR ---
DISCHARGE PLANNING Spoke with Zita in admitting at [facility] patient assigned to [facility] room 139 RN to report [phone], bed available anytime. RN working on obtaining discharge order. Any ambulance can be arranged. Placed transportation packet in nurse station. Addendum: 10/17/16 at 1240 by Meena Cardoso DP DC order to SNF. Called [facility] [phone] spoke with Allie arranged S transport supervisor opening and picking 4:30pm.
--- NOTE | 2016-10-17 11:00 | NUR ---
Dr Carr called for possible discharge to [facility] today.
[2016-10-17] MEDS: cefTRIAXone 1 GM in D5W 50 ML IV SCH (11:33)
[2016-10-17 12:23] VITALS: BP 93/44; PULSE 53; RESP 16; TEMP 98.3; O2SAT 97
--- NOTE | 2016-10-17 12:23 | NUR ---
herbert catheter in placed #16. secured in place and dated.
[2016-10-17 13:31] VITALS: BP 100/73; PULSE 64; RESP 18; TEMP 98.3; O2SAT 96
--- NOTE | 2016-10-17 15:35 | NUR ---
PHYSICAL THERAPY CO-SIGN The Physical Therapy Progress Notes documented by Machinist First Class have been reviewed. I CONCUR W/PIANO ACCOMPANIST NOTE; CONT PER TX PLAN Reviewed/Co-Signed by: Christine Rivera PT Documentation Done by: YO MENDES PIANO ACCOMPANIST Addendum: 10/17/16 at 1536 by Christine Rivera PT Amended: Links added.
[2016-10-17 16:06] VITALS: BP 108/47; PULSE 75; RESP 18; TEMP 97; O2SAT 98
--- NOTE | 2016-10-17 16:48 | NUR ---
PATIENT IS STABLE. DAUGHTER DUGLAS IS AT THE BEDSIDES. TRANSITION CARE SIGNED BY THE DAUGHTER. EXPLAINED THE MEDICATION ONE BY ONE. SCDS ID BAND REMOVED. PLACED A NEW ID BAND. INFORMED PATIENT IS GOING TO [facility] ROOM 113-A. PATIENT IS STABLE. AT THIS TIME.
--- NOTE | 2016-10-17 16:48 | NUR ---
PICK BY [facility]. IN STABLE CONDITION.
== END 2016-10-17 16:48 | DRG 208 ==
LOC: SED 09:38 → SIC 10:42 → STU 10-13 17:54 → SMU 10-15 20:11
PROVIDERS: ADMIT Family Medicine; ATTEND Family Medicine
PROC: 5A1935Z Respiratory Ventilation, Less than 24 Consecutive Hours (ICD-10-PCS; 2016-10-12)
PROC: 0BH17EZ Insertion of Endotracheal Airway into Trachea, Via Natural or Artificial Opening (ICD-10-PCS; 2016-10-12)
PROC: 02HV33Z Insertion of Infusion Device into Superior Vena Cava, Percutaneous Approach (ICD-10-PCS; principal; 2016-10-16)
PROC: B548ZZA Ultrasonography of Superior Vena Cava, Guidance (ICD-10-PCS; 2016-10-16)
DX: J69.0 Pneumonitis due to inhalation of food and vomit (principal); G93.41 Metabolic encephalopathy; I50.31 Acute diastolic (congestive) heart failure; J96.02 Acute respiratory failure with hypercapnia; J96.01 Acute respiratory failure with hypoxia; E87.2 Acidosis; N39.0 Urinary tract infection, site not specified; Z66 Do not resuscitate; I10 Essential (primary) hypertension; G31.84 Mild cognitive impairment of uncertain or unknown etiology; F41.1 Generalized anxiety disorder; F32.9 Major depressive disorder, single episode, unspecified; G89.4 Chronic pain syndrome; K21.9 Gastro-esophageal reflux disease without esophagitis; E11.42 Type 2 diabetes mellitus with diabetic polyneuropathy; M19.90 Unspecified osteoarthritis, unspecified site; M54.5 Low back pain; E03.9 Hypothyroidism, unspecified; B96.4 Proteus (mirabilis) (morganii) as the cause of diseases classified elsewhere; I11.0 Hypertensive heart disease with heart failure; J44.9 Chronic obstructive pulmonary disease, unspecified; Z16.19 Resistance to other specified beta lactam antibiotics; Z16.24 Resistance to multiple antibiotics; Z51.5 Encounter for palliative care; Z90.49 Acquired absence of other specified parts of digestive tract; Z91.81 History of falling; Z99.3 Dependence on wheelchair; Z88.1 Allergy status to other antibiotic agents; Z79.891 Long term (current) use of opiate analgesic; Z90.710 Acquired absence of both cervix and uterus; Z79.899 Other long term (current) drug therapy
CPT/HCPCS: 36415; 36600; 70450-TC; 71010; 80048; 80053; 80061; 81000-TC; 82140-TC; 82803-TC; 83605; 83880; 84484; 85025; 85610-TC; 85730-TC; 86710; 87040-TC; 87070-TC; 87081; 87086; 87186-TC; 87205-TC; 93005; 93306; 94002; 94640; 94760; 96365; 96375; 97110-GP; 97530-GP; 99291; C1751; C1769; J0360; J0696; J2270; J2310; J2543; J2930; J3480; J3490; J7030; J7040; J7050; J7060; Q0162

== ENCOUNTER 2016-11-14 04:45 | Inpatient (IN) | payer OTHER, MEDICARE ==
[2016-11-14] VITALS (7 sets, daily range): BP systolic 109–166
[~2016-11-14] VITALS: Ht 149.9 cm; Wt 56.7 kg
[~2016-11-14 04:45] MED LIST: ACET-2165 PO; AMIT100T2 PO; CHOL500013 PO; DULR10 RC; GABA-531 PO; HYDR-3111 PO; IPRA4AER INH; LEVO88TA5 PO; LOPE1LIQ PO; MAGN400O4 PO; METO25TA6 PO; NOR10 PO; OMEP20CA10 PO; ONDA4TAB5 PO; SERT-131 PO
[2016-11-14] MEDS ORDERED: NACL 0.9% 1,000 ML IV ONE (04:48)
[2016-11-14] MEDS ORDERED: DIPHENHYDRAMINE INJ 50 MG/ML VIAL IVP ONE ×2 (05:00→07:15)
[2016-11-14] MEDS ORDERED: MORPHINE 2 MG/ML INJ. SYRINGE IVP ONE (05:00)
[2016-11-14] MEDS ORDERED: SACC250C3 PO (06:15)
[2016-11-14 06:20] LABS: ANION GAP 3 (5-15); CALCIUM 9.1 mg/dL (8.4-11.0); CHLORIDE 104 mmol/L (98-107); CREATININE 0.84 mg/dL (0.55-1.30); GLUCOSE 96 mg/dL (70-99); POTASSIUM 3.7 mmol/L (3.5-5.1); SODIUM SERUM 141 mmol/L (136-145); UREA NITROGEN, BLOOD 22 mg/dL (8-21)
[2016-11-14 06:23] LABS: INR 1.1 (0.8-1.2); PROTHROMBIN TIME 11.6 SECS (9.5-12.5)
[2016-11-14 06:25] LABS: ALANINE AMINOTRANSFERASE 19 U/L (12-78); ALBUMIN 3.9 g/dL (3.4-4.8); ASPARTATE AMINOTRANSFERASE 20 U/L (10-37); TOTAL BILIRUBIN 0.3 mg/dL (0.0-1.0)
[2016-11-14 06:29] LABS: BASOPHILS # (AUTO) 0.1 K/uL (0.0-0.2); BASOPHILS % (AUTO) 0.9 % (0.0-2.0); EOSINOPHILS # (AUTO) 0.3 K/uL (0.0-0.4); HEMATOCRIT 42.2 % (36-48); HEMOGLOBIN 13.4 g/dL (12.0-16.0); LYMPHOCYTES # (AUTO) 1.3 K/uL (1.0-5.5); LYMPHOCYTES % (AUTO) 12.1 % (20.5-51.5); MEAN CORPUSCULAR HEMOGLOBIN 28 pg (27-31); MEAN CORPUSCULAR HGB CONC 32 % (32-36); MEAN CORPUSCULAR VOLUME 87 fL (79.0-98.0); MONOCYTES # (AUTO) 0.3 K/uL (0.0-1.0); NEUTROPHILS # (AUTO) 8.4 K/uL (1.8-7.7); PLATELET COUNT (AUTO) 218 K/uL (130-430); RED BLOOD CELL COUNT(AUTO) 4.86 MIL/uL (4.2-6.2); RED CELL DISTRIBUTION WIDTH 14.4 % (9.0-15.0); WHITE BLOOD COUNT (AUTO) 10.4 K/uL (4.8-10.8)
[2016-11-14] MEDS ORDERED: ONDANSETRON HCL 4 MG/2 ML VIAL IVP PRN (06:45)
[2016-11-14] MEDS ORDERED: MORPHINE 4 MG/ML INJ. SYRINGE IVP ONE (07:15)
[2016-11-14 09:29] LABS: BILIRUBIN,URINE NEGATIVE (NEGATIVE); CLARITY/URINE HAZY (CLEAR); COLOR,URINE YELLOW (YELLOW); GLUCOSE,URINE NEGATIVE (NEGATIVE); KETONES,URINE NEGATIVE (NEGATIVE); LEUKOCYTE ESTERASE ,URINE 3+ (NEGATIVE); NITRITE, URINE POSITIVE (NEGATIVE); PH,URINE 5.5 (5.0-8.0); PROTEIN URINE TRACE (NEGATIVE); UROBILINOGEN,URINE 0.2 (0.2-1.0)
[2016-11-14 09:47] LABS: BLOOD, URINE TRACE (NEGATIVE)
[2016-11-14 09:48] LABS: BACTERIA,URINE MODERATE /HPF (None Seen); MUCUS,URINE None Seen /LPF (None Seen); RBC,URINE 0-3 /HPF (0-3); WBC,URINE 20-50 /HPF (0-3)
[2016-11-14] MEDS ORDERED: IPRATROPIUM/ALBUTEROL SULFATE 120 PUFFS/4 GM INH INH PRN (13:30)
[2016-11-14] MEDS ORDERED: ACETAMINOPHEN 325 MG TABLET PO PRN (13:30)
[2016-11-14] MEDS ORDERED: MILK OF MAGNESIA 30 ML UDC PO PRN (13:30)
[2016-11-14] MEDS ORDERED: BISACODYL 10 MG/SUPPOSITORY RC PRN (13:30)
[2016-11-14] MEDS ORDERED: LOPERAMIDE HCL PO PRN (13:30)
[2016-11-14] MEDS: D5/0.45 NS 1,000 ML IV SCH (14:39)
[2016-11-14] MEDS: MORPHINE 2 MG/ML INJ. SYRINGE IVP PRN ×2 (15:04→20:23)
[2016-11-14] MEDS ORDERED: IPRATROPIUM/ALBUTEROL SULFATE 3 ML AMPUL.NEB INH PRN (15:30)
[2016-11-14] MEDS: HYDROcodone/ACETAMIN 7.5-325 MG TAB PO PRN (17:03)
[2016-11-14] MEDS: AMITRIPTYLINE HCL 25 MG TABLET (ELAVIL) PO SCH (20:15)
[2016-11-14] MEDS: GABAPENTIN 300 MG CAPSULE PO SCH (20:15)
[2016-11-14] MEDS ORDERED: METOPROLOL TARTRATE 25 MG TABLET PO SCH (21:00)
[2016-11-15 04:18] VITALS: BP_SYST 99
[2016-11-15] MEDS: LEVOTHYROXINE SODIUM 0.088 MG TABLET PO SCH (06:13)
[2016-11-15] MEDS: D5/0.45 NS 1,000 ML IV SCH ×2 (06:13→19:19)
[2016-11-15 06:31] LABS: BASOPHILS % (AUTO) 0.4 % (0.0-2.0); EOSINOPHILS # (AUTO) 0.2 K/uL (0.0-0.4); EOSINOPHILS % (AUTO) 2.7 % (0.0-4.0); HEMATOCRIT 32.6 % (36-48); HEMOGLOBIN 10.4 g/dL (12.0-16.0); LYMPHOCYTES # (AUTO) 1.4 K/uL (1.0-5.5); MEAN CORPUSCULAR HEMOGLOBIN 28 pg (27-31); MEAN CORPUSCULAR HGB CONC 32 % (32-36); MEAN CORPUSCULAR VOLUME 88 fL (79.0-98.0); MONOCYTES # (AUTO) 0.4 K/uL (0.0-1.0); MONOCYTES % (AUTO) 5.9 % (1.7-9.3); PLATELET COUNT (AUTO) 173 K/uL (130-430); RED CELL DISTRIBUTION WIDTH 13.9 % (9.0-15.0)
[2016-11-15 07:02] LABS: CHLORIDE 103 mmol/L (98-107); POTASSIUM 4.3 mmol/L (3.5-5.1); SODIUM SERUM 136 mmol/L (136-145); UREA NITROGEN, BLOOD 18 mg/dL (8-21)
[2016-11-15 08:00] VITALS: BP_SYST 102
[2016-11-15 08:01] LABS: ANION GAP < 3 (5-15)
[2016-11-15] MEDS: SERTRALINE HCL 50 MG TABLET PO SCH (09:00)
[2016-11-15] MEDS: OMEPRAZOLE 20 MG CAPSULE.DR (PriLOSEC) PO SCH (09:00)
[2016-11-15] MEDS: amLODIPine BESYLATE 10 MG TABLET PO SCH (09:00)
[2016-11-15 09:19] LABS: CALCIUM 8.3 mg/dL (8.4-11.0); GLUCOSE 108 mg/dL (70-99)
[2016-11-15] MEDS ORDERED: VANCOMYCIN HCL 1 GM/NS PREMIX 250 ML IV ONE (10:00)
[2016-11-15] MEDS: D5NS 1,000 ML IV SCH ×2 (10:39→18:58)
[2016-11-15 11:33] VITALS: BP_SYST 141
[2016-11-15] MEDS ORDERED: SEVOFLURANE 15 MIN GAS INH ONE (12:22)
[2016-11-15] MEDS ORDERED: CEFAZOLIN 1 GM IVPB PREMIX 50 ML IV ONE (12:22)
[2016-11-15] MEDS ORDERED: MIDAZOLAM HCL 5 MG/5 ML VIAL IVP ONE (12:22)
[2016-11-15] MEDS ORDERED: KETOROLAC TROMETHAMINE 15 MG VIAL IVP ONE (12:22)
[2016-11-15] MEDS ORDERED: LR 1,000 ML IV.SOLN IV ONE (12:22)
[2016-11-15] MEDS ORDERED: PROPOFOL 200MG/ 20ML VIAL (DIPRIVAN) IV ONE (12:22)
[2016-11-15] MEDS ORDERED: BUPIVACAINE /EPINEPHRINE/PF 0.25% 30 ML VIAL INJ ONE (12:22)
[2016-11-15] MEDS ORDERED: POLYMYXIN 500,000/BACIT.10,000 UNITS in NS IRR 1 L IR ONE (12:27)
[2016-11-15] MEDS ORDERED: LR 1,000 ML IV ONE (13:14)
[2016-11-15] MEDS ORDERED: ONDANSETRON HCL 4 MG/2 ML VIAL IVP PRN ×2 (13:15)
[2016-11-15] MEDS ORDERED: fentaNYL CITRATE/PF 100 MCG/2 ML AMP IVP PRN (13:15)
[2016-11-15] MEDS ORDERED: ePHEDrine sulfate 50 MG/ML VIAL IVP PRN (13:15)
[2016-11-15] MEDS ORDERED: NALOXONE HCL 0.4 MG/ML AMP (NARCAN) IVP PRN (13:15)
[2016-11-15] MEDS ORDERED: NALBUPHINE HCL 10 MG/ML AMP IVP PRN (13:15)
[2016-11-15] MEDS ORDERED: DIPHENHYDRAMINE INJ 50 MG/ML VIAL IVP PRN (13:15)
[2016-11-15] MEDS ORDERED: MILK OF MAGNESIA 30 ML UDC PO PRN (15:45)
[2016-11-15] MEDS ORDERED: fentaNYL CITRATE/PF 100 MCG/2 ML AMP ONE (15:46)
[2016-11-15] MEDS ORDERED: LOPERAMIDE HCL 2 MG CAPSULE PO PRN (16:15)
[2016-11-15] MEDS: HYDROcodone/ACETAMIN 7.5-325 MG TAB PO PRN (18:24)
[2016-11-15 19:45] VITALS: BP_SYST 101
[2016-11-15] MEDS: GABAPENTIN 300 MG CAPSULE PO SCH (21:22)
[2016-11-15] MEDS: AMITRIPTYLINE HCL 25 MG TABLET (ELAVIL) PO SCH (21:22)
[2016-11-15] MEDS: SENNOSIDES 8.6 MG TABLET PO SCH (21:22)
[2016-11-16] VITALS (7 sets, daily range): BP systolic 100–124
[2016-11-16] MEDS: LEVOTHYROXINE SODIUM 0.088 MG TABLET PO SCH (06:05)
[2016-11-16] MEDS: D5/0.45 NS 1,000 ML IV SCH ×2 (06:06→17:58)
[2016-11-16 06:55] LABS: BASOPHILS % (AUTO) 0.3 % (0.0-2.0); EOSINOPHILS # (AUTO) 0.1 K/uL (0.0-0.4); EOSINOPHILS % (AUTO) 0.9 % (0.0-4.0); HEMATOCRIT 25.7 % (36-48); HEMOGLOBIN 8.1 g/dL (12.0-16.0); LYMPHOCYTES # (AUTO) 0.7 K/uL (1.0-5.5); LYMPHOCYTES % (AUTO) 7.8 % (20.5-51.5); MEAN CORPUSCULAR HEMOGLOBIN 28 pg (27-31); MEAN CORPUSCULAR HGB CONC 32 % (32-36); MEAN CORPUSCULAR VOLUME 88 fL (79.0-98.0); MONOCYTES # (AUTO) 0.5 K/uL (0.0-1.0); MONOCYTES % (AUTO) 5.5 % (1.7-9.3); NEUTROPHILS # (AUTO) 8.3 K/uL (1.8-7.7); NEUTROPHILS % (AUTO) 85.5 % (40.0-70.0); PLATELET COUNT (AUTO) 163 K/uL (130-430); RED BLOOD CELL COUNT(AUTO) 2.92 MIL/uL (4.2-6.2); WHITE BLOOD COUNT (AUTO) 9.6 K/uL (4.8-10.8)
[2016-11-16 07:17] LABS: CALCIUM 7.8 mg/dL (8.4-11.0); CHLORIDE 105 mmol/L (98-107); CREATININE 0.67 mg/dL (0.55-1.30); GLUCOSE 152 mg/dL (70-99); SODIUM SERUM 135 mmol/L (136-145); UREA NITROGEN, BLOOD 11 mg/dL (8-21)
[2016-11-16 07:24] LABS: ANION GAP < 3 (5-15)
[2016-11-16] MEDS: SERTRALINE HCL 50 MG TABLET PO SCH (09:00)
[2016-11-16] MEDS: MULTIVITAMINS TAB 1 TABLET PO SCH (09:00)
[2016-11-16] MEDS: ASCORBIC ACID 500 MG TABLET PO SCH ×2 (09:00→21:29)
[2016-11-16] MEDS: amLODIPine BESYLATE 10 MG TABLET PO SCH (09:00)
[2016-11-16] MEDS: OMEPRAZOLE 20 MG CAPSULE.DR (PriLOSEC) PO SCH (09:00)
[2016-11-16] MEDS: ENOXAPARIN SODIUM 40 MG/0.4 ML SYRINGE SUBCUT SCH (10:19)
[2016-11-16] MEDS: MORPHINE 2 MG/ML INJ. SYRINGE IVP PRN (17:59)
[2016-11-16] MEDS: SENNOSIDES 8.6 MG TABLET PO SCH (21:29)
[2016-11-17] MEDS: MORPHINE 2 MG/ML INJ. SYRINGE IVP PRN ×3 (03:22→23:17)
[2016-11-17 04:46] VITALS: BP_SYST 126
[2016-11-17] MEDS: LEVOTHYROXINE SODIUM 0.088 MG TABLET PO SCH (06:16)
[2016-11-17] MEDS: D5/0.45 NS 1,000 ML IV SCH ×2 (06:17→21:33)
[2016-11-17 06:45] LABS: BASOPHILS % (AUTO) 0.3 % (0.0-2.0); EOSINOPHILS # (AUTO) 0.1 K/uL (0.0-0.4); EOSINOPHILS % (AUTO) 1.5 % (0.0-4.0); LYMPHOCYTES # (AUTO) 0.8 K/uL (1.0-5.5); LYMPHOCYTES % (AUTO) 9.3 % (20.5-51.5); MEAN CORPUSCULAR HEMOGLOBIN 29 pg (27-31); MEAN CORPUSCULAR HGB CONC 33 % (32-36); MEAN CORPUSCULAR VOLUME 87 fL (79.0-98.0); MONOCYTES # (AUTO) 0.5 K/uL (0.0-1.0); MONOCYTES % (AUTO) 5.6 % (1.7-9.3); NEUTROPHILS # (AUTO) 7.6 K/uL (1.8-7.7); NEUTROPHILS % (AUTO) 83.3 % (40.0-70.0); PLATELET COUNT (AUTO) 139 K/uL (130-430); RED BLOOD CELL COUNT(AUTO) 2.41 MIL/uL (4.2-6.2); RED CELL DISTRIBUTION WIDTH 13.1 % (9.0-15.0)
[2016-11-17 06:46] LABS: CALCIUM 7.8 mg/dL (8.4-11.0); CHLORIDE 105 mmol/L (98-107); CREATININE 0.56 mg/dL (0.55-1.30); GLUCOSE 139 mg/dL (70-99); POTASSIUM 3.4 mmol/L (3.5-5.1); SODIUM SERUM 137 mmol/L (136-145); UREA NITROGEN, BLOOD 6 mg/dL (8-21)
[2016-11-17 06:50] LABS: HEMATOCRIT 21.1 % (36-48); HEMOGLOBIN 6.9 g/dL (12.0-16.0)
[2016-11-17 07:03] LABS: ANION GAP < 3 (5-15)
[2016-11-17 08:16] LABS: HEMATOCRIT 21.3 % (36-48); HEMOGLOBIN 6.9 g/dL (12.0-16.0)
[2016-11-17] MEDS: ENOXAPARIN SODIUM 40 MG/0.4 ML SYRINGE SUBCUT SCH (09:00)
[2016-11-17] MEDS ORDERED: FUROSEMIDE 20 MG/2 ML VIAL IVP ONE ×2 (09:00→17:45)
[2016-11-17 09:43] VITALS: BP_SYST 144
[2016-11-17] MEDS: OMEPRAZOLE 20 MG CAPSULE.DR (PriLOSEC) PO SCH (09:47)
[2016-11-17] MEDS: SERTRALINE HCL 50 MG TABLET PO SCH (09:47)
[2016-11-17] MEDS: ASCORBIC ACID 500 MG TABLET PO SCH ×2 (09:48→21:33)
[2016-11-17] MEDS: amLODIPine BESYLATE 10 MG TABLET PO SCH (09:48)
[2016-11-17] MEDS: MULTIVITAMINS TAB 1 TABLET PO SCH (09:48)
[2016-11-17] MEDS: HYDROcodone/ACETAMIN 5-325 MG TAB (NORCO/ VICODIN) PO PRN (14:06)
[2016-11-17] MEDS ORDERED: POTASSIUM CHLORIDE 20 MEQ TAB.PRT.SR PO ONE (14:45)
[2016-11-17 16:00] VITALS: BP_SYST 127
[2016-11-17 20:12] VITALS: BP_SYST 123
[2016-11-17] MEDS: SENNOSIDES 8.6 MG TABLET PO SCH (21:33)
[2016-11-18 00:01] VITALS: BP_SYST 114
[2016-11-18 04:06] VITALS: BP_SYST 132
[2016-11-18] MEDS: LEVOTHYROXINE SODIUM 0.088 MG TABLET PO SCH (06:15)
[2016-11-18 06:42] LABS: BASOPHILS % (AUTO) 0.3 % (0.0-2.0); EOSINOPHILS # (AUTO) 0.4 K/uL (0.0-0.4); EOSINOPHILS % (AUTO) 4.7 % (0.0-4.0); HEMOGLOBIN 9.9 g/dL (12.0-16.0); LYMPHOCYTES % (AUTO) 10.9 % (20.5-51.5); MEAN CORPUSCULAR HEMOGLOBIN 28 pg (27-31); MEAN CORPUSCULAR HGB CONC 33 % (32-36); MEAN CORPUSCULAR VOLUME 86 fL (79.0-98.0); MONOCYTES # (AUTO) 0.5 K/uL (0.0-1.0); MONOCYTES % (AUTO) 5.2 % (1.7-9.3); NEUTROPHILS # (AUTO) 7.2 K/uL (1.8-7.7); NEUTROPHILS % (AUTO) 78.9 % (40.0-70.0); PLATELET COUNT (AUTO) 153 K/uL (130-430); RED CELL DISTRIBUTION WIDTH 14.6 % (9.0-15.0); WHITE BLOOD COUNT (AUTO) 9.1 K/uL (4.8-10.8)
[2016-11-18 07:17] LABS: ANION GAP 1 (5-15); CALCIUM 8.2 mg/dL (8.4-11.0); CHLORIDE 105 mmol/L (98-107); GLUCOSE 118 mg/dL (70-99); POTASSIUM 3.2 mmol/L (3.5-5.1); SODIUM SERUM 142 mmol/L (136-145); UREA NITROGEN, BLOOD 7 mg/dL (8-21)
[2016-11-18 07:54] VITALS: BP_SYST 129
[2016-11-18] MEDS: ENOXAPARIN SODIUM 40 MG/0.4 ML SYRINGE SUBCUT SCH (08:53)
[2016-11-18] MEDS: MULTIVITAMINS TAB 1 TABLET PO SCH (08:54)
[2016-11-18] MEDS: SERTRALINE HCL 50 MG TABLET PO SCH (08:54)
[2016-11-18] MEDS: OMEPRAZOLE 20 MG CAPSULE.DR (PriLOSEC) PO SCH (08:54)
[2016-11-18] MEDS: ASCORBIC ACID 500 MG TABLET PO SCH (08:54)
[2016-11-18] MEDS: amLODIPine BESYLATE 10 MG TABLET PO SCH (08:55)
[2016-11-18] MEDS ORDERED: MAGNESIUM SULFATE IN WATER 100 ML IV ONE (09:00)
[2016-11-18] MEDS ORDERED: POTASSIUM CHLORIDE 20 MEQ TAB.PRT.SR PO SCH (09:00)
[2016-11-18] MEDS: HYDROcodone/ACETAMIN 5-325 MG TAB (NORCO/ VICODIN) PO PRN ×2 (09:46→17:07)
[2016-11-18 12:15] VITALS: BP_SYST 129
[2016-11-18 15:52] VITALS: BP_SYST 125
[2016-11-18 18:13] VITALS: BP_SYST 125
== END 2016-11-18 20:02 | DRG 481 ==
LOC: SED 04:45 → SMU 06:35 → STU 19:53 → SMU 11-17 09:28
PROVIDERS: ADMIT Family Medicine; ATTEND Family Medicine
PROC: 0QS804Z Reposition Right Femoral Shaft with Internal Fixation Device, Open Approach (ICD-10-PCS; 2016-11-15)
PROC: 30233N1 Transfusion of Nonautologous Red Blood Cells into Peripheral Vein, Percutaneous Approach (ICD-10-PCS; principal; 2016-11-17)
DX: M80.851A Other osteoporosis with current pathological fracture, right femur, initial encounter for fracture (principal); N39.0 Urinary tract infection, site not specified; D62 Acute posthemorrhagic anemia; E03.9 Hypothyroidism, unspecified; F32.9 Major depressive disorder, single episode, unspecified; F41.1 Generalized anxiety disorder; G31.84 Mild cognitive impairment of uncertain or unknown etiology; G62.9 Polyneuropathy, unspecified; I11.0 Hypertensive heart disease with heart failure; I25.10 Atherosclerotic heart disease of native coronary artery without angina pectoris; G89.4 Chronic pain syndrome; M54.5 Low back pain; Z66 Do not resuscitate; Z96.651 Presence of right artificial knee joint; M16.11 Unilateral primary osteoarthritis, right hip; I50.9 Heart failure, unspecified; M48.00 Spinal stenosis, site unspecified; M24.561 Contracture, right knee; W18.39XA Other fall on same level, initial encounter; Y93.89 Activity, other specified; Z79.899 Other long term (current) drug therapy; I25.2 Old myocardial infarction; Z90.49 Acquired absence of other specified parts of digestive tract; Z90.710 Acquired absence of both cervix and uterus; Z88.2 Allergy status to sulfonamides; Z88.1 Allergy status to other antibiotic agents; Z99.3 Dependence on wheelchair; Y92.89 Other specified places as the place of occurrence of the external cause; Y99.8 Other external cause status
CPT/HCPCS: 36415; 71010; 73552; 76001; 80048; 80053; 81000-TC; 83735-TC; 85018-TC; 85025; 85610-TC; 85730-TC; 86886; 86900; 86901; 86920; 87081; 87086; 87186-TC; 93005; 94010; 96361; 96374; 96375; 96376; 97110-GP; 97530-GP; 99285; C1713; C1769; J0690; J1200; J1650; J1885; J1940; J2250; J2270; J2405; J2704; J3010; J3370; J3475; J3490; J7030; J7040; J7042; J7050; J7120; L1830; P9021

== ENCOUNTER 2016-12-27 15:58 | Emergency (ER) | payer OTHER, MEDICARE ==
[~2016-12-27] VITALS: Ht 149.9 cm; Wt 56.7 kg
[2016-12-27 15:58] VITALS: BP_SYST 141
[~2016-12-27 15:58] MED LIST changes: -ONDA4TAB5 PO; +SACC250C3 PO
[2016-12-27 18:16] LABS: BILIRUBIN,URINE NEGATIVE (NEGATIVE); BLOOD, URINE 1+ (NEGATIVE); CLARITY/URINE HAZY (CLEAR); COLOR,URINE YELLOW (YELLOW); GLUCOSE,URINE NEGATIVE (NEGATIVE); KETONES,URINE NEGATIVE (NEGATIVE); LEUKOCYTE ESTERASE ,URINE 3+ (NEGATIVE); NITRITE, URINE POSITIVE (NEGATIVE); PROTEIN URINE 1+ (NEGATIVE); UROBILINOGEN,URINE 0.2 (0.2-1.0)
[2016-12-27 18:32] LABS: BACTERIA,URINE MANY /HPF (None Seen); MUCUS,URINE None Seen /LPF (None Seen); RBC,URINE NONE SEEN /HPF (0-3); WBC,URINE 80-100 /HPF (0-3)
[2016-12-27 19:18] VITALS: BP_SYST 152
== END 2016-12-27 19:18 | disposition home or self-care (01) ==
LOC: SED 15:58
DX: M25.561 Pain in right knee (principal); N39.0 Urinary tract infection, site not specified; I10 Essential (primary) hypertension; Z88.2 Allergy status to sulfonamides; Z88.1 Allergy status to other antibiotic agents; Z96.651 Presence of right artificial knee joint; W19.XXXA Unspecified fall, initial encounter; Y93.89 Activity, other specified; Y92.89 Other specified places as the place of occurrence of the external cause; Y99.8 Other external cause status
CPT/HCPCS: 73564; 81000-TC; 87086; 87186-TC; 99285

== ENCOUNTER 2019-05-06 10:18 | Emergency (ER) | payer OTHER, MEDICARE ==
[~2019-05-06] VITALS: Ht 157.5 cm; Wt 54.4 kg
[~2019-05-06 10:18] MED LIST changes: -LOPE1LIQ PO; -MAGN400O4 PO; +MOM PO; -OMEP20CA10 PO; +OMEP20CA11 PO; +[UNRECOGNIZED DRUG - CODE] PO
--- NOTE | 2019-05-06 10:35 | NUR ---
Patient to ER bed to gown for evaluation. Side rails up.
[2019-05-06 10:36] VITALS: BP_SYST 129
--- NOTE | 2019-05-06 10:40 | NUR ---
pt arrives via BLS s/p mechanical fall. Pt did not lose consiousness. Pt sustained a lac on the forehead. Reports falling 3 times this week, and reports pain on the right hip.
--- NOTE | 2019-05-06 10:50 | NUR ---
ER at bedside examining patient.
--- NOTE | 2019-05-06 11:02 | NUR ---
pt getting CXR at the bedside.
--- NOTE | 2019-05-06 11:18 | NUR ---
pt getting labs drawn at the bedside.
[2019-05-06 11:33] LABS: BASOPHILS # (AUTO) 0.1 K/uL (0.0-0.2); EOSINOPHILS # (AUTO) 0.4 K/uL (0.0-0.4); HEMATOCRIT 40.6 % (36-48); LYMPHOCYTES # (AUTO) 1.1 K/uL (1.0-5.5); LYMPHOCYTES % (AUTO) 12.7 % (20.5-51.5); MEAN CORPUSCULAR HEMOGLOBIN 29 pg (27-31); MEAN CORPUSCULAR HGB CONC 32 % (32-36); MEAN CORPUSCULAR VOLUME 90 fL (79.0-98.0); MONOCYTES # (AUTO) 0.5 K/uL (0.0-1.0); MONOCYTES % (AUTO) 6.2 % (1.7-9.3); NEUTROPHILS # (AUTO) 6.4 K/uL (1.8-7.7); NEUTROPHILS % (AUTO) 75.1 % (40.0-70.0); PLATELET COUNT (AUTO) 151 K/uL (130-430); WHITE BLOOD COUNT (AUTO) 8.6 K/uL (4.8-10.8)
[2019-05-06 11:49] LABS: ANION GAP 5 (5-15); CHLORIDE 102 mmol/L (98-107); GLUCOSE 113 mg/dL (70-99); INR 1.2 (0.8-1.2); POTASSIUM 4.4 mmol/L (3.5-5.1); PROTHROMBIN TIME 11.8 SECS (9.5-12.5); SODIUM SERUM 137 mmol/L (136-145); UREA NITROGEN, BLOOD 16 mg/dL (8-21)
--- NOTE | 2019-05-06 11:50 | NUR ---
Bonny kelley in ED - 05/06/19 at 1202 by SDNRAIZA JOSH Oliveira at bedside examining patient.
[2019-05-06 11:54] LABS: ALANINE AMINOTRANSFERASE 28 U/L (12-78); ALBUMIN 3.3 g/dL (3.4-4.8); ASPARTATE AMINOTRANSFERASE 17 U/L (10-37); TOTAL BILIRUBIN 0.5 mg/dL (0.0-1.0)
--- NOTE | 2019-05-06 12:30 | NUR ---
Bernarda Gonsalves, daughter of patient([employer]) called informed that she is unavailable to be present in ER do to Jury Duty. Update given on treatment.
--- NOTE | 2019-05-06 12:59 | NUR ---
Dr. Whitehead at the bedside closing the lac w/ glue. Pt tolerated well.
--- NOTE | 2019-05-06 13:10 | NUR ---
Attempted to arrange w/ [facility]. Spoke w/ Marily, who stated that transportation will not be available for several hours.
[2019-05-06 15:10] VITALS: BP_SYST 129
--- NOTE | 2019-05-06 15:11 | NUR ---
Patient given written and verbal discharge instructions and verbalizes understanding. ER MD discussed with patient the results and treatment provided. Patient in stable condition. ID arm band removed. Patient educated on pain management and to follow up with PMD. Pain Scale 3/10. Opportunity for questions provided and answered. Medication side effect fact sheet provided.
== END 2019-05-06 15:11 | disposition home or self-care (01) ==
LOC: SED 10:18
DX: S01.81XA Laceration without foreign body of other part of head, initial encounter (principal); Z88.2 Allergy status to sulfonamides; I10 Essential (primary) hypertension; E07.9 Disorder of thyroid, unspecified; Z79.899 Other long term (current) drug therapy; W19.XXXA Unspecified fall, initial encounter; Y93.89 Activity, other specified; Y92.89 Other specified places as the place of occurrence of the external cause; Y99.8 Other external cause status
CPT/HCPCS: 36415; 70450-TC; 71045; 73564; 80053; 84484; 85025; 85610-TC; 85730-TC; 93005; 99284